=== PATIENT | male | born 2000 | race Caucasian/White ===

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

== ENCOUNTER 2020-03-26 17:15 | Outpatient (CLI) | payer OTHER | END 2020-03-26 17:16 | disposition home or self-care (01) | LOC: COV 17:15 | PROVIDERS: ATTEND Family Medicine | DX: R50.9 Fever, unspecified (principal); R06.02 Shortness of breath; R11.0 Nausea; R53.83 Other fatigue; M79.10 Myalgia, unspecified site; Z20.828 Contact with and (suspected) exposure to other viral communicable diseases ==

== ENCOUNTER 2020-04-07 08:53 | Emergency (ER) | payer OTHER ==
[2020-04-07 09:07] VITALS: BP 116/65
--- NOTE | 2020-04-07 09:35 | ED Physician Documentation ---
PD HPI URI - Stated complaint Stated Complaint: WEAKNESS/FEVER - Chief complaint Chief Complaint: Heent - History obtained from History obtained from: Patient - History of Present Illness Timing - onset: Today, Last night Timing duration: Days (1) Timing details: Abrupt onset, Still present Associated symptoms: Fever, Chills, Sore throat, Other (poor tast and smell). No: Dry cough, Dyspnea Contributing factors: No: Sick contact, Travel, Immunocompromised Similar symptoms before: No diagnosis (URI symptoms few weeks ago for couple days, then better.) Recently seen: Not recently seen Review of Systems Constitutional: reports: Fever, Chills, Myalgias Nose: reports: Congestion. denies: Rhinorrhea / runny nose Throat: reports: Sore throat. denies: Dental pain / toothache Respiratory: denies: Cough GI: denies: Nausea, Vomiting, Diarrhea Skin: denies: Lesions PD PAST MEDICAL HISTORY - Past Medical History Past Medical History: No - Past Surgical History Past Surgical History: No - Present Medications Home Medications: Ambulatory Orders Medication Instructions Recorded Confirmed No Known Home Medications 04/07/20 04/07/20 - Allergies Allergies/Adverse Reactions: Allergies Allergy/AdvReac Type Severity Reaction Status Date / Time No Known Drug Allergies Allergy Verified 04/07/20 09:07 - Social History Does the pt smoke?: No Smoking Status: Never smoker Does the pt drink ETOH?: No Does the pt have substance abuse?: No - POLST Patient has POLST: No PD ED PE NORMAL - Vitals Vital signs reviewed: Yes - General General: Alert and oriented X 3, No acute distress, Well developed/nourished - HEENT HEENT: No: Pharynx benign (mild redness without swelling nor exudate. ) - Neck Neck: Supple, no meningeal sign, Other (mild anterior adenopathy on left. ) - Cardiac Cardiac: RRR, No murmur - Respiratory Respiratory: Clear bilaterally - Abdomen Abdomen: Soft, Non tender - Derm Derm: Normal color, Warm and dry - Neuro Neuro: Alert and oriented X 3, No motor deficit, Normal speech Results - Vitals Vitals: Vital Signs - 24 hr 04/07/20 04/07/20 09:00 10:56 Temperature 38.3 C H Heart Rate 100 38 L Respiratory 18 Rate Blood Pressure 116/65 O2 Saturation 97 Oxygen O2 Source Room air - Labs Labs: Laboratory Tests 04/07/20 09:54 Group A Strep Rapid Negative PD MEDICAL DECISION MAKING - ED course Complexity details: considered differential (seems URI, but consider bacterial pharyngitis or possible COVID. ), d/w patient Departure - Departure Disposition: 01 Home, Self Care Clinical Impression: Upper respiratory infection Qualifiers: URI type: unspecified URI Qualified Code(s): J06.9 - Acute upper respiratory infection, unspecified Condition: Stable Record reviewed to determine appropriate education?: Yes Instructions: ED Upper Resp Infec No Abx Tx Comments: Your rapid strep test is negative. We will culture this and see if there is any bacterial growth over the next couple of days. Your Covid test will likely take a couple of days as well. At this point presume a viral illness and stay well- hydrated and use Tylenol or ibuprofen for fevers. Home from work for the next couple of days until you are feeling better and your Covid test results. You have a Covid test pending. You need to self quarantine until the result is done and negative. Do not leave your house. Do not get near anybody. The results should be done in 48 to 72 hours, but sometimes longer. We will call with a positive result, the fastest way to get a negative result for confirmation though is to go to the hospital website at [email or web address], click on the my [facility] tab and sign up for the patient portal. If any friends or family get sick and would like to have a Covid test done, but do not have signs or symptoms that would necessitate being hospitalized, we encourage testing through our coronavirus swabbing station, call [phone] to schedule an appointment. Discharge Date/Time: 04/07/20 10:57
[2020-04-07] MEDS ORDERED: ACETAMINOPHEN 325 MG TABLET PO STA (09:45)
[2020-04-07] MEDS ORDERED: IBUPROFEN 600 MG TABLET PO STA (09:45)
[2020-04-07 10:23] LABS: RAPID STREP SCREEN Negative (Negative)
[2020-04-07] MEDS ORDERED: DEXAMETHASONE 10 MG/ML VIAL PO STA (10:34)
[2020-04-07] MEDS ORDERED: CHERRY SYRUP 10 ML UDC PO ONE (10:34)
== END 2020-04-07 10:57 | disposition home or self-care (01) ==
LOC: ED 08:53
DX: U07.1 COVID-19 (principal); J06.9 Acute upper respiratory infection, unspecified
CPT/HCPCS: 87070; 87430; 87635; 99283; A9270

== ENCOUNTER 2020-06-25 03:43 | Emergency (ER) | payer SELFPAY ==
--- NOTE | 2020-06-25 03:57 | ED Physician Documentation ---
History of Present Illness - Stated complaint Stated Complaint: SOA, SWOLLEN EYES - Chief complaint Chief Complaint: Resp - History obtained from History obtained from: Patient - History of Present Illness Timing: Yesterday (noon) Pain level now: 0 Improved by: nothing Worsened by: no exacerbating factors - Additonal information Additional information: since noon yesterday patient has had sore throat and generalized mild headache. Since midnight today has had generalized myalgias, mild dyspnea, chills but no diaphoresis. He says he had similar symptoms on previous ED visit (March 2020) at which time he was diagnosed with COVID (confirmed by swab). Review of Systems Constitutional: reports: Chills, Myalgias. denies: Fever, Fatigue, Sweats Ears: denies: Ear pain Throat: denies: Sore throat Cardiac: reports: Reviewed and negative Respiratory: reports: Dyspnea (mild). denies: Cough, Hemoptysis, Wheezing GI: denies: Abdominal Pain, Nausea, Vomiting Musculoskeletal: denies: Neck pain, Back pain Neurologic: reports: Headache PD PAST MEDICAL HISTORY - Past Medical History Past Medical History: No - Past Surgical History Past Surgical History: No - Present Medications Home Medications: Ambulatory Orders Medication Instructions Recorded Confirmed No Known Home Medications 04/07/20 06/25/20 - Allergies Allergies/Adverse Reactions: Allergies Allergy/AdvReac Type Severity Reaction Status Date / Time No Known Drug Allergies Allergy Verified 06/25/20 03:53 - Social History Does the pt smoke?: No Smoking Status: Never smoker Does the pt drink ETOH?: No Does the pt have substance abuse?: No - POLST Patient has POLST: No PD ED PE NORMAL - Vitals Vital signs reviewed: Yes - General General: Alert and oriented X 3, No acute distress, Well developed/nourished - HEENT HEENT: Moist mucous membranes, Other (mild posterior oropharyngeal erythema without exudate or edema) - Neck Neck: Supple, no meningeal sign - Cardiac Cardiac: RRR, No murmur, No gallop, No rub - Respiratory Respiratory: No respiratory distress, Clear bilaterally - Derm Derm: Normal color, Warm and dry, No rash PD ED PE EXPANDED - Eyes Eyes: Injected conj/sclera (mild, bilateral) Results - Vitals Vitals: Oxygen O2 Source Room air - Labs Labs: Microbiology 06/25/20 04:20 Group A Strep Throat Culture - Preliminary Throat CULTURE IN PROGRESS. RESULTS TO FOLLOW. Laboratory Tests 06/25/20 06/25/20 06/25/20 04:09 04:20 04:34 WBC 11.3 H RBC 4.92 Hgb 15.3 Hct 46.1 MCV 93.7 MCH 31.1 H MCHC 33.2 RDW 13.0 Plt Count 214 MPV 10.4 Neut # (Auto) 7.9 H Lymph # (Auto) 2.0 [place] # (Auto) 0.9 Eos # (Auto) 0.4 Baso # (Auto) 0.0 Absolute Nucleated RBC 0.00 Nucleated RBC % 0.0 Sodium Potassium Chloride Carbon Dioxide Anion Gap BUN Creatinine Estimated GFR (MDRD) Glucose Calcium Total Bilirubin AST ALT Alkaline Phosphatase Total Protein Albumin Globulin Albumin/Globulin Ratio Lipase Nasal Adenovirus (PCR) NOT DETECTED Nasal B. parapertussis DNA (PCR) NOT DETECTED Nasal Coronavir 229E PCR NOT DETECTED Nasal Coronavir HKU1 PCR NOT DETECTED Nasal Coronavir NL63 PCR NOT DETECTED Nasal Coronavir OC43 PCR NOT DETECTED Nasal Enterovir/Rhinovir PCR DETECTED A Nasal Influenza B PCR NOT DETECTED Nasal Influenza A PCR NOT DETECTED Nasal Parainfluen 1 PCR NOT DETECTED Nasal Parainfluen 2 PCR NOT DETECTED Nasal Parainfluen 3 PCR NOT DETECTED Nasal Parainfluen 4 PCR NOT DETECTED Nasal RSV (PCR) NOT DETECTED Nasal B.pertussis DNA PCR NOT DETECTED Nasal C.pneumoniae (PCR) NOT DETECTED Pravin Human Metapneumo PCR NOT DETECTED Nasal M.pneumoniae (PCR) NOT DETECTED Nasal SARS-CoV-2 (PCR) NOT DETECTED Infectious [place] Assay Group A Strep Rapid Negative 06/25/20 06/25/20 04:34 04:34 WBC RBC Hgb Hct MCV MCH MCHC RDW Plt Count MPV Neut # (Auto) Lymph # (Auto) [place] # (Auto) Eos # (Auto) Baso # (Auto) Absolute Nucleated RBC Nucleated RBC % Sodium 136 Potassium 3.4 L Chloride 99 L Carbon Dioxide 27 Anion Gap 10.0 BUN 13 Creatinine 1.0 Estimated GFR (MDRD) 94 Glucose 96 Calcium 9.0 Total Bilirubin 3.3 H AST 19 ALT 19 Alkaline Phosphatase 61 Total Protein 7.0 Albumin 4.4 Globulin 2.6 Albumin/Globulin Ratio 1.7 Lipase 39 Nasal Adenovirus (PCR) Nasal B. parapertussis DNA (PCR) Nasal Coronavir 229E PCR Nasal Coronavir HKU1 PCR Nasal Coronavir NL63 PCR Nasal Coronavir OC43 PCR Nasal Enterovir/Rhinovir PCR Nasal Influenza B PCR Nasal Influenza A PCR Nasal Parainfluen 1 PCR Nasal Parainfluen 2 PCR Nasal Parainfluen 3 PCR Nasal Parainfluen 4 PCR Nasal RSV (PCR) Nasal B.pertussis DNA PCR Nasal C.pneumoniae (PCR) [place]ravin Human Metapneumo PCR Nasal M.pneumoniae (PCR) Nasal SARS-CoV-2 (PCR) Infectious [place] Assay NEGATIVE Group A Strep Rapid PD MEDICAL DECISION MAKING - ED course Complexity details: reviewed old records, reviewed results, re-evaluated patient, considered differential, d/w patient Departure - Departure Disposition: 01 Home, Self Care Clinical Impression: Viral syndrome, Hyperbilirubinemia Condition: Good Instructions: ED Viral Syndrome Follow-Up: Joie Chawla ARNP [Credentialed Staff Provider] - Discharge Date/Time: 06/25/20 06:18
[2020-06-25 04:37] LABS: RAPID STREP SCREEN Negative (Negative)
[2020-06-25 04:39] LABS: BASOPHILS % (AUTO) 0.4 %; EOSINOPHILS # (AUTO) 0.4 10^3/uL (0.0-0.7); EOSINOPHILS % (AUTO) 3.9 %; HCT - HEMATOCRIT 46.1 % (42.0-52.0); HGB - HEMOGLOBIN 15.3 g/dL (14.0-18.0); LYMPHOCYTES % (AUTO) 17.4 %; MEAN CORPUSCULAR HEMOGLOBIN 31.1 pg (27.0-31.0); MEAN CORPUSCULAR HGB CONC 33.2 g/dL (32.0-36.0); MEAN CORPUSCULAR VOLUME 93.7 fL (80.0-94.0); MEAN PLATELET VOLUME 10.4 fL (7.4-11.4); MONOCYTES # (AUTO) 0.9 10^3/uL (0.0-1.0); MONOCYTES % (AUTO) 8.1 %; NEUTROPHILS # (AUTO) 7.9 10^3/uL (1.5-6.6); NEUTROPHILS % (AUTO) 69.8 %; PLT - PLATELET COUNT 214 10^3/uL (130-450); RED BLOOD COUNT 4.92 10^6/uL (4.70-6.10); WHITE BLOOD COUNT 11.3 x10^3/uL (4.8-10.8)
[2020-06-25 04:49] LABS: ALBUMIN 4.4 g/dL (3.2-5.5); ALBUMIN/GLOBULIN RATIO 1.7 (1.0-2.2); BILIRUBIN,TOTAL 3.3 mg/dL (0.2-1.0); INFECTIOUS MONONUCLEOSIS NEGATIVE (Negative); POTASSIUM 3.4 mmol/L (3.5-5.0)
[2020-06-25 05:40] LABS: B. PARAPERTUSSIS- RESP PCR PAN NOT DETECTED; B. PERTUSSIS- RESP PCR PANEL NOT DETECTED; C. PNEUMONIAE- RESP PCR PANEL NOT DETECTED; CORONAVIRUS 229E-RESP PCR NOT DETECTED; CORONAVIRUS HKU1-RESP PCR NOT DETECTED; CORONAVIRUS NL63-RESP PCR NOT DETECTED; CORONAVIRUS OC43-RESP PCR NOT DETECTED; HUMAN METAPNEUMOVIRUS NOT DETECTED; INFLUENZA A- RESP PCR PANEL NOT DETECTED; INFLUENZA B - RESP PCR PANEL NOT DETECTED; M. PNEUMONIAE- RESP PCR PANEL NOT DETECTED; PARAINFLUENZA VIRUS 1 NOT DETECTED; PARAINFLUENZA VIRUS 2 NOT DETECTED; PARAINFLUENZA VIRUS 3 NOT DETECTED; PARAINFLUENZA VIRUS 4 NOT DETECTED; RHINOVIRUS/ENTEROVIRUS DETECTED; RSV- RESP PCR PANEL NOT DETECTED; SARS-CoV-2 -RESP PCR PANEL NOT DETECTED
[2020-06-25 06:13] VITALS: BP 103/79
== END 2020-06-25 06:18 | disposition home or self-care (01) ==
LOC: ED 03:43
DX: B34.9 Viral infection, unspecified (principal); E80.6 Other disorders of bilirubin metabolism; Z20.822 Contact with and (suspected) exposure to COVID-19; Z86.16 Personal history of COVID-19
CPT/HCPCS: 0202U; 36415; 80053; 83690; 85025; 86308; 87070; 87430; 99283; 99284

== ENCOUNTER 2023-09-12 16:20 | Emergency (ER) | payer MEDICAID, OTHER ==
--- NOTE | 2023-09-12 18:15 | ED Physician Documentation ---
PD HPI NECK PAIN - Stated complaint Stated Complaint: NECK/BACK PX - Chief complaint Chief Complaint: Back Pain - History obtained from History obtained from: Patient - History of Present Illness Timing - onset: Yesterday Timing - duration: Days (1-2) Timing - details: Abrupt onset, Still present Location: Mid, Lower, Right, Left Quality: Pain, Spasm Associated symptoms: No: Fever, Weakness, Numbness Improves with: Rest. No: Meds (tried Ibuprofen without improvement.) Worsened by: Movement, Lifting Contributing factors: Lifting (he had bent down to lift something and neck started to have pain and spasms. Intermittent similar in the past since age 14. Not chronic pain.) Similar symptoms before: No diagnosis Review of Systems Constitutional: denies: Fever, Chills, Myalgias Skin: denies: Rash, Lesions Neurologic: denies: Focal weakness, Numbness PD PAST MEDICAL HISTORY - Past Medical History Musculoskeletal: Chronic back pain - Past Surgical History Past Surgical History: No - Present Medications Home Medications: Ambulatory Orders Medication Instructions Recorded Confirmed HYDROcod/ACETAM 5/325 [[place] 5/325] 1 ea PO Q6H PRN #14 tablet 09/12/23 Lidocaine Patch 5% [Lidoderm Patch] 1 patch TOP DAILY PRN #10 patch 09/12/23 Meloxicam [Mobic] 7.5 mg PO BID 10 Days #20 tablet 09/12/23 tiZANidine [Zanaflex] 4 mg PO Q8H PRN #25 tablet 09/12/23 - Allergies Allergies/Adverse Reactions: Allergies Allergy/AdvReac Type Severity Reaction Status Date / Time No Known Drug Allergies Allergy Verified 09/12/23 16:28 - Social History Does the pt smoke?: No Smoking Status: Never smoker Does the pt drink ETOH?: Yes Does the pt have substance abuse?: No Substance Use and Type: Marijuana - POLST Patient has POLST: No PD ED PE NORMAL - Vitals Vital signs reviewed: Yes - General General: Alert and oriented X 3, Well developed/nourished - Neck Neck: Supple, no meningeal sign, No bony TTP, Other (guarded ROM of the neck. Has muscle tenderness in upper to mid trapezius area both sides up to the occipital ridge, and toward scapular area bilaterally. ) - Derm Derm: Normal color, Warm and dry, No rash - Neuro Neuro: Alert and oriented X 3, No motor deficit, No sensory deficit, Normal speech Results - Vitals Vitals: Oxygen O2 Source Room air PD Medical Decision Making - ED course Complexity details: considered differential (no foreceul trauma. No red flags on history/exam. Can treat as muscle strain with spasms. ), d/w patient Departure - Departure Disposition: 01 Home, Self Care Clinical Impression: Acute strain of neck muscle Condition: Stable Record reviewed to determine appropriate education?: Yes Instructions: ED Spasm Neck No Injury Prescriptions: Lidocaine Patch 5% [Lidoderm Patch] 1 patch TOP DAILY PRN #10 patch PRN Reason: pain Meloxicam [Mobic] 7.5 mg PO BID 10 Days #20 tablet HYDROcod/ACETAM 5/325 [[place] 5/325] 1 ea PO Q6H PRN #14 tablet PRN Reason: Pain tiZANidine [Zanaflex] 4 mg PO Q8H PRN #25 tablet PRN Reason: Spasms Comments: Without a particular forceful injury or other concerning characteristics (we referred to them as red flags) then we typically do not think of needing to do imaging. It sounds like a muscle strain or spasm. Will treat it with a combination of anti-inflammatories and muscle relaxants and then adding pain medicine if needed. Physical or topical treatments can be quite beneficial as well with massage or chiropractic and lidocaine patches etc. I sent your prescriptions to your preferred for [facility] as we chose. Limited activity for the next couple of days until this is feeling better. Recheck if not improving well over the next several days. I am prescribing a short course of narcotic pain medication for you. These are potentially dangerous and addictive medications that should be used carefully. These medications may constipate you. Take an [id number] stool softener such as docusate twice daily with plenty of water while taking these medications. If you go 24 hours without a bowel movement, take [id number] MiraLAX, per package instructions. Do not drink or drive while taking these medications. If you received narcotic or sedating medications while in the emergency department do not drive for 24 hours. Store this medication in a safe, secure place and out of reach of children. It is a violation of federal law to give or sell this medication to another person or to use in a manner other than prescribed. The ED will not refill narcotic prescriptions, including prescriptions lost or stolen. You can dispose of unwanted medications at [facility] office or at several pharmacies such as [facility]. Discharge Date/Time: 09/12/23 19:20
[2023-09-12] MEDS: NAPROXEN 250 MG TABLET PO STA (19:08)
[2023-09-12] MEDS: methocarbamoL 500 MG TABLET PO STA (19:08)
[2023-09-12] MEDS: ACETAMINOPHEN 500 MG TABLET PO STA (19:08)
[2023-09-12] MEDS: LIDOCAINE PATCH 5% TOP STA (19:09)
[2023-09-12 19:19] VITALS: BP 115/74; O2SAT 98
== END 2023-09-12 19:20 | disposition home or self-care (01) ==
LOC: ED 16:20
DX: S16.1XXA Strain of muscle, fascia and tendon at neck level, initial encounter (principal); X50.1XXA Overexertion from prolonged static or awkward postures, initial encounter
CPT/HCPCS: 99283; A9270